=== PATIENT | male | born 1950 | race Caucasian/White ===

== ENCOUNTER 2025-02-01 14:44 | Outpatient (CLI) | payer MEDICARE, SELFPAY ==
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
--- NOTE | ~2025-02-01 | CT_ITS ---
EXAM/PROCEDURE: CT_LERTCWO_CT HISTORY: Preoperative planning COMPARISON: None available. TECHNIQUE: Conformis protocol pre arthroplasty right knee CT exam performed. FINDINGS: Advanced tricompartmental osteoarthritic degenerative changes about the knee noted. Degenerative changes noted in the ankle and hindfoot region. Right hip arthroplasty hardware appears intact. Small joint effusion noted in the knee. No gross acute or aggressive bony or soft tissue process otherwise identified. IMPRESSION: Preoperative right knee conformance protocol CT exam. Advanced osteoarthritic tricompartmental degenerative changes of the right knee noted. Other findings as above. Reviewed, dictated and finalized at location A. TING TRADES WORKER IMPRESSION: Preoperative right knee conformance protocol CT exam. Advanced osteoarthritic t ricompartmental degenerative changes of the right knee noted. Other findings as above.
[2025-02-01 16:04] LABS: Hematocrit 44.1 % (42.0-52.0); Hemoglobin 14.6 g/dL (14.0-18.0)
[2025-02-01 16:17] LABS: Albumin Level 4.0 g/dL (3.5-5.1); Estimated Glomerular Filt Rate > 60
--- OUTSIDE RECORDS SUMMARY | 2025-02-01 16:57 | XMS_ITS | Clinical Summary ---
Author Organization [facility] Address [address] [place] [address] Care Team Providers Care Laboratory Secretary Name Role Phone Edna Sousa MD Primary Care Provider [phone] Source Comments [facility],non-owned Affiliates and Associated Physician Practices is amultiple site organization consisting of ambulatory clinics and hospital sitesin [place], [place], [place] and [place]. This disclosure is being madepursuant to the Care Everywhere program and may not contain all information available regarding this patient. Last updated 17.[facility] Allergies No known active allergies Medications * Be aware that medications may not be up to date on this document. Alwaysverify current medications with the patient. Multiple Vitamins-Mineral s (VITRUM SENIOR) TABS Active tamsulosin (FLOMAX) 0.4 MG capsule 04/11/2019 Active tiZANidine (ZANAFLEX) 2 MG tablet TK ONE T PO Q 6 H PRF MUSCLE SPASMS 10/22/2018 Active Active Problems No known active problems Social History Tobacco Use Types Packs/Day Years Used Date Smoking Tobacco: Never Smokeless Tobacco: Never Sex and Gender Information Value Date Recorded Sex Assigned at Not on file Legal Sex Male 9:21 AM CDT Gender Identity Not on file Sexual Orientation Not on file Last Filed Vital Signs Vital Sign Reading Time Taken Comments Blood Pressure - - Pulse - - Temperature - - Respiratory Rate - - Oxygen Saturation - - Inhaled Oxygen Concentration - - Weight 102.5 kg (226 lb) 05/04/2019 1:44 PM CDT Height 175.3 cm (5' 9) 05/04/2019 1:44 PM CDT Body Mass Index 33.37 05/04/2019 1:44 PM CDT Plan of Treatment Health Maintenance Due Date Last Done Comments COLOGUARD (AGES 45-75) - COLON CA SCREENING 1949 COLON MONITORING 1949 COLONOSCOPY - COLON CA SCREENING 1949 CT COLONOGRAPHY - COLON CA SCREENING 1950 Colorectal Cancer Screening 1949 FIT - COLON CA SCREENING 1949 FLEX SIG - COLON CA SCREENING 1949 LIPID TESTING 1949 HEPATITIS C SCREENING 12/02/1967 DTAP/TDAP/TD VACCINES (1 - Tdap) 1968 PNEUMOCOCCAL VACCINE 50+ (1 of 1 - PCV) 12/07/1999 ZOSTER VACCINE (1 of 2) 12/07/1999 SCREENING FOR DIABETES 05/04/2019 DEPRESSION SCREENING 02/18/2024 COVID-19 VACCINE (1 - season) 2024 INFLUENZA VACCINE (#1) 2024 8, 12/12/2017, 03/19/2016, Additional history exists Respiratory Syncytial Virus (RSV) Vaccine Pt: or over 60 yrs (1 - 1-dose 75+ series) 2024 HEPATITIS B VACCINE Aged Out No longe r eligible based on patient's age to complete this topic HIB VACCINE Aged Out No longer eligi ble based on patient's age to complete this topic HPV VACCINE Aged Out No longer eligi ble based on patient's age to complete this topic MENINGOCOCCAL (Group B) VACCINE SHARED DECISION-MAKING Aged Out No longer eligible based on patient's age to complete this topic MENINGOCOCCAL GROUPS A/C/Y/W VACCINE Aged Out No longer eligible based on patient's age to complete this topic Insurance [facility] MANAGED MEDICARE ADV [employer] Care Teams Laboratory Secretary Relationship Specialty Start Date End Date Edna Sousa MD [address] [place] [id number] PCP - General Internal Medicine 11/02/18
--- OUTSIDE RECORDS SUMMARY | 2025-02-01 16:57 | XMS_ITS | Encounter Summary ---
Author Organization [facility] Healthcare Address [address] [place] [address] Care Team Providers Care Flight Attendant Inflight Services Name Role Phone Elina Sousa MD Primary Care Provider + [phone] Antonio Frausto MD Unavailable [phone] Avelina Wilkes MD Unavailable [phone] Ryan Lopez Unavailable Unavail able Anil Ames MD Unavailable [phone] Luis E Mackey DC Unavailable [phone] Carleen Villa LPN Unavailable [phone] Anthony Monroe MD Unavailable [phone] Anil Vargas MD Unavailable [phone] Ryan Stephen DO Unavailable [phone] Encounter Details Date Type Department Care Team (Late st Contact Info) Description 08/12/2023 [facility] Post Discharge Follow up phone call [facility] Surgery Care [address] [place] [address] [phone] Leatha Chairez Social History Tobacco Use Types Packs/Day Years Used Date Smoking Tobacco: Never Smokeless Tobacco: Never Alcohol Use Standard Drinks/Week Comments Not Currently 0 (1 standard drink = 0.6 oz pur e alcohol) AUDIT-C Answer Date Recorded Frequency of Alcohol Consumption Never 04/28/2018 Average Number of Drinks Not on file 019 Frequency of Binge Drinking Not on file 04/17 PHQ-2 Answer Date Recorded PHQ-2 Total Score (If total score is 3 or more points, staff should administer the PHQ-9) 0 08/21/2022 Sex and Gender Information Value Date Recorded Sex Assigned at Not on file Legal Sex Male 1:45 AM SPECIALIST MANAGERS Gender Identity Male 08/09/2019 10:41 AM CDT Sexual Orientation Straight 06/08/2019 1: 04 PM CDT Occupation Industry Job Start Date Job End Date disabled Not on file Not on file Not on file documented as of this encounter Plan of Treatment Upcoming Encounters Date Type Department Care Team (Latest Contact Info) Description 03/21/2025 12:30 PM SPECIALIST MANAGERS Hospital Encounter [address] [address] Ryan Stephen DO [address] [place] [address] 03/21/2025 12:30 PM SPECIALIST MANAGERS - 03/21/2025 1:00 PM SPECIALIST MANAGERS Surgery [address] [address] Ryan Stephen DO [address] [facility] [address] [place], [place] [address], [place] [address] ESOPHAGOGASTRODUODENOSCOPY Scheduled Procedures Name Priority Associated Diagnoses Date/Ti md ESOPHAGOGASTRODUODENOSCOPY Eosinophilic esophagitis Gastroesophageal reflux disease without esophagitis 03/21/2025 12:30 PM SPECIALIST MANAGERS documented as of this encounter Visit Diagnoses Not on filedocumented in this encounter Care Teams Flight Attendant Inflight Services Relationship Specialty Start Date End Date Elina Sousa MD PCP - General 12/21/12 Antonio Frausto MD Referring Physician Orthopedic Surgery 03/25/17 Avelina Wilkes MD Consulting Physician Gastroenterology 03/25/17 Ryan Lopez Referring Physician Gastroenterology 03/25/17 Anil Ames MD Consulting Physician Urology 04/01/18 Luis E Mackey, [place] [facility] [place] [address] Referring Physician Chiropractic Medicine 08/25/23 Carleen Villa, CANDE [address] [place] [address] [address] [place] [address] Boat Hand 02/27/24 02/27/24 Anthony Monroe MD [address] [place] [address] [address] [place], [place] [address], [place] [address] Consulting Physician Cardiology 05/05/24 Anil Vargas MD [address] [place] [address] [address] [place], [place] [address], [place] [address] Consulting Physician Anesthesiology 09/01/24 Ryan Stephen DO [address] [place] [address] [address] [place] [address] Consulting Physician Gastroenterology 10/26/24 documented as of this encounter
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
== END 2025-02-01 14:45 | disposition home or self-care (01) ==
PROVIDERS: PCP Internal Medicine Geriatric Medicine; Visit Provider Orthopaedic Surgery
DX: M17.11 Unilateral primary osteoarthritis, right knee (principal); Z01.818 Encounter for other preprocedural examination
CPT/HCPCS: 36415; 73700; 82040; 82565; 85014; 85018